=== PATIENT | male | born 1980 | race Caucasian/White ===

== ENCOUNTER 2018-07-12 09:10 | Emergency (ER) | payer OTHER ==
[~2018-07-12] VITALS: Ht 177.8 cm; Wt 94.5 kg
[2018-07-12 09:13] VITALS: Ht 177.8 cm; Wt 94.5 kg
[2018-07-12] MEDS ORDERED: KETOROLAC 15 MG INJ IV STA (09:33)
[2018-07-12] MEDS ORDERED: SOD CHLORIDE 0.9% 1,000 ML IV STA (09:33)
[2018-07-12] MEDS ORDERED: AZIT500T3 PO (09:36)
[2018-07-12] MEDS ORDERED: IBUP-1542 PO (09:36)
[2018-07-12] MEDS ORDERED: PENICILLIN G BENZ 1.2 MIL UNIT SYG IM ONE (10:00)
--- NOTE | 2018-07-12 10:50 | ERD ---
ER Documentation Chief Complaint Chief Complaint ST FEVER X 3 DAYS. HX OF STREPT THROAT HPI 37-year-old man complains of pain, fever, redness, swelling to his throat times 3 days beginning about 2 days after smoking hookah socially with other friends. He denies headache or blurry vision, no neck pain or stiffness but he has had pa in with swallowing. Patient denies cough, no abdominal pain, no vomiting or diarrhea. ROS All systems reviewed and are negative except as per history of present illness. Medications Home Meds Active Scripts Ibuprofen* (Motrin*) 600 Mg Tab, 600 MG PO Q8 PRN for PAIN AND/OR INFLAMMATION, #30 TAB Prov:DEJA ABRAMS MD 07/12/18 Azithromycin* (Zithromax*) 500 Mg Tablet, 500 MG PO DAILY for 5 Days, TAB Prov:DEJA ABRAMS MD 07/12/18 Allergies Allergies: Coded Allergies: kiwi (Verified Allergy, Unknown, 07/12/18) PMhx/Soc None Medical and Surgical Hx: pt denies Medical Hx, pt denies Surgical Hx Hx Alcohol Use: No Hx Substance Use: No Hx Tobacco Use: No Smoking Status: Never smoker FmHx Family History: No diabetes Physical Exam Vitals Vital Signs Date Temp Pulse Resp B/P (MAP) Pulse Ox O2 O2 Flow FiO2 Time Delivery Rate 07/12/18 97.8 117 18 139/74 98 09:13 (95) Physical Exam GENERAL: Well-developed, well-nourished, afebrile HEENT: Bilateral pharyngeal erythema with exudates, uvula is midline, no submandibular induration NEURO: Alert and oriented 3, cranial nerves II through XII intact bilaterally, pupils equal round reactive to light, no focal deficits or facial asymmetry CARDIAC: Tachycardic and regular, no murmurs rubs or gallops LUNGS: Clear bilaterally no wheezing crackles or stridor ABDOMEN: Soft nontender, no guarding, no rigidity, no rebound, no psoas sign no obturator sign. Normoactive bowel sounds SKIN: Warm and dry to touch, no abrasions, contusions, or hematomas, no lacerations, no ecchymosis, no target lesions, and without ulcers EXTREMITIES: No clubbing cyanosis or edema, calves are bilaterally symmetrical, no Homans sign, no popliteal cord sign. Distal pulses equal and bilateral PSYCH: Normal affect without agitation or irritability Result Diagram: 07/12/18 0949 07/12/18 0949 Results 24 hrs Laboratory Tests Test 07/12/18 09:49 White Blood Count 20.5 10^3/ul Red Blood Count 5.28 10^6/ul Hemoglobin 13.4 g/dl Hematocrit 41.7 % Mean Corpuscular Volume 79.0 fl Mean Corpuscular Hemoglobin 25.4 pg Mean Corpuscular Hemoglobin Concent 32.1 g/dl Red Cell Distribution Width 13.1 % Platelet Count 274 10^3/UL Mean Platelet Volume 10.8 fl Immature Granulocytes % 0.700 % Neutrophils % 79.8 % Lymphocytes % 10.9 % Monocytes % 8.3 % Eosinophils % 0.0 % Basophils % 0.3 % Nucleated Red Blood Cells % 0.0 /100WBC Immature Granulocytes # 0.150 10^3/ul Neutrophils # 16.3 10^3/ul Lymphocytes # 2.2 10^3/ul Monocytes # 1.7 10^3/ul Eosinophils # 0.0 10^3/ul Basophils # 0.1 10^3/ul Nucleated Red Blood Cells # 0.0 10^3/ul Sodium Level 139 mmol/L Potassium Level 3.9 mmol/L Chloride Level 100 mmol/L Carbon Dioxide Level 27 mmol/L Anion Gap 12 Blood Urea Nitrogen 11 mg/dl Creatinine 1.16 mg/dl Est Glomerular Filtrat Rate mL/min > 60 mL/min Glucose Level 128 mg/dl Calcium Level 9.7 mg/dl Current Medications Medications Dose Sig/Lanette Start Time Status Last (Trade) Ordered Route PRN Stop Time Admin Dose Reason Admin Penicillin 1,200,000 ONCE ONCE 07/12/18 DC 07/12/18 G units IM 10:00 07/12/18 10:08 Benzathine 10:01 (Bicillin La) Sodium 1,000 ml @ Q1H STAT 07/12/18 DC 07/12/18 Chloride 1,000 mls/hr IV 09:33 07/12/18 10:08 10:32 Ketorolac 15 mg ONCE STAT 07/12/18 DC 07/12/18 Tromethamine IV 09:33 07/12/18 10:08 (Toradol) 09:35 Procedures/MDM IV line was established patient was placed on playground monitor rhythm strip revealed a sinus tachycardia at 120 bpm with upright P and T waves. Patient was afebrile I administered penicillin VK 1,200,000 units IM x1. Patient also received 1 L normal saline IV and Toradol 15 mg IV x1. CBC reveals a leukocytosis at 21, electrolytes were normal Patient has no signs or symptoms of sepsis and was treated here with penicillin although I will give him a 5-day course of azithromycin once daily. I also educated him about sharing hookah pipe with others and the risks associated with tobacco smoke and contact and droplet precautions. Differential diagnoses considered, included but not limited to Tino's angina, peritonsillar abscess, pneumonia, appendicitis, cholecystitis, bowel obstruction, pyelonephritis, nephrolithiasis, cystitis, as well as metabolic, hematologic, and electrolyte abnormalities. As well as abscess, cellulitis, fr actures, and dislocations. Patient feels much better at this time, and vital signs are normal, symptoms have improved. I did give strict instructions to return to the ED if symptoms continue or worsen, patient will otherwise follow-up with primary care physician. Patient understood instructions and agreed to plan. Disclaimer: Inadvertent spelling and grammatical errors are likely due to EHR/dictation software use and do not reflect on the overall quality of patient care. Also, please note that the electronic time recorded on this note does not necessarily reflect the actual time of the patient encounter. Departure Diagnosis: Primary Impression: Acute pharyngitis Pharyngitis/tonsillitis etiology: unspecified etiology Qualified Codes: J02.9 - Acute pharyngitis, unspecified Condition: Good Patient Instructions: Strep Throat DEJA ABRAMS MD Jul 12, 2018 10:50
[2018-07-12 11:11] VITALS: BP 124/80; PULSE 88; RESP 18
== END 2018-07-12 11:20 | disposition home or self-care (01) ==
LOC: E/R 09:10
DX: J02.9 Acute pharyngitis, unspecified (principal); R40.2142 Coma scale, eyes open, spontaneous, at arrival to emergency department; R40.2362 Coma scale, best motor response, obeys commands, at arrival to emergency department
CPT/HCPCS: 36415; 80048; 85025; 96372; 96374; 99284; J0561; J1885; J7030